=== PATIENT | male | born 2000 | race Caucasian/White ===

== ENCOUNTER 2025-01-16 08:30 | Emergency (ER) | payer SELFPAY ==
[~2025-01-16] VITALS: Ht 180.3 cm; Wt 96.6 kg
[2025-01-16] MEDS ORDERED: LORAZEPAM INJ 2 MG/ML VIAL ONE (08:40)
[2025-01-16] MEDS: IV NS 0.9% 1,000 ML BAG IV ONE (08:46)
[2025-01-16] MEDS: LORAZEPAM INJ 2 MG/ML VIAL IV ONE (08:47)
[2025-01-16 08:56] LABS: PLATELET COUNT (AUTO) 356 K/uL (150-450); RED BLOOD CELL COUNT(AUTO) 5.86 MIL/uL (4.5-6.0); RED CELL DISTRIBUTION WIDTH 13.8 % (11.5-15.0); WHITE BLOOD COUNT (AUTO) 15.6 K/uL (4.3-11.0)
[2025-01-16 09:06] LABS: CALCIUM, SERUM 9.4 mg/dL (8.5-10.1); CREATININE 1.0 mg/dL (0.6-1.3); SODIUM SERUM 139 mmol/L (136-145); UREA NITROGEN, BLOOD 12 mg/dL (7-18)
[2025-01-16 09:12] LABS: ASPARTATE AMINOTRANSFERASE 27 U/L (15-37); TOTAL PROTEIN, SERUM 7.7 g/dL (6.4-8.2)
[2025-01-16] MEDS ORDERED: MORPHINE SULFATE INJ 2 MG/ML DISP.SYRIN ONE (09:12)
[2025-01-16] MEDS: MORPHINE SULFATE INJ 2 MG/ML DISP.SYRIN IV ONE (09:19)
[2025-01-16 09:57] VITALS: BP 136/67; TEMP 98.7; O2SAT 98
== END 2025-01-16 10:03 | disposition home or self-care (01) ==
LOC: ER 08:32
DX: F14.10 Cocaine abuse, uncomplicated (principal); F19.10 Other psychoactive substance abuse, uncomplicated; R07.9 Chest pain, unspecified; R06.02 Shortness of breath; R10.13 Epigastric pain; R61 Generalized hyperhidrosis
CPT/HCPCS: 99285; 96374; 71045; 96361; 96375; 93005 ×2; 85025; 80048; 83690; 80076; 36415; 84484 ×2; J2060; J7030; J2270